=== PATIENT | female | born 1945 | race Caucasian/White ===

== ENCOUNTER 2016-12-09 13:34 | Emergency (ER) | payer MEDICARE, OTHER ==
[~2016-12-09] VITALS: Ht 170.2 cm; Wt 79.5 kg
[~2016-12-09 13:34] MED LIST: DULO30C PO; GABA300C PO; ROPI2TAB27 PO; [UNRECOGNIZED DRUG - CODE] PO
[2016-12-09 13:41] VITALS: BP 124/77; PULSE 84; RESP 15; O2SAT 94
[2016-12-09 14:33] LABS: BASOPHILS % (AUTO) 0.6 % (0-3); EOSINOPHILS % (AUTO) 5.3 % (0-5); MONOCYTES % (AUTO) 5.9 % (4-12); Mean Corpuscular Hemoglobin 30.2 pg (27.0-35.0); Mean Corpuscular Volume 92.1 fL (81-100); NEUTROPHILS % (AUTO) 73.1 % (40-74); Platelet Count 267 bil/L (150-400)
--- NOTE | 2016-12-09 14:37 | DRSVH ---
PROCEDURE: X-RAY CHEST ONE VIEW, PORTABLE ([id number]) INDICATIONS: CHEST PAIN TECHNIQUE: One view of the chest was acquired. COMPARISON: None. FINDINGS: Surgical changes and devices: None. Lungs and pleura: No pleural effusions or pneumothorax. Lungs are clear. Mediastinum: Mediastinal contours appear normal. Heart size is normal. Bones and chest wall: No suspicious bony lesions. Overlying soft tissues appear unremarkable. IMPRESSION: No acute pulmonary process. Dictated by: Ana Maria Riojas M.D. on 12/09/2016 at 14:36 Approved by: Ana Maria Riojas M.D. on 12/09/2016 at 14:36
[2016-12-09] MEDS ORDERED: Alum-Mag Hydrox-Simeth 30 mL Suspension PO ONE (14:40)
--- NOTE | 2016-12-09 14:56 | ED.REPORT ---
HPI-Chest Pain 40 and Over Date of Service Dec 09, 2016 ED Provider: Doc,Ed MD Ms. Clare Vale is a pleasant 71-year-old female with past medical history significant for depression, restless leg syndrome, and hip replacement surgery and significant smoking history 50+ years anywhere from a third to a pack a day , presents to [facility] emergency Department with 4 hour history of central chest pressure or 5 out of 10 that intermittently radiates to the jaw bilaterally and a waxing and waning pattern for which she took a chewable aspirin for an 3 hours into the spell visited the urgent care at which point her pressure subsided. She noted that it would resolve and resume on its own and not correlated to rest or activity, however she did state that did seem to have gotten worse at one point when bending over. She denies all other symptoms like headache, dizziness, syncope, nausea, vomiting, fever, chills, change in vision, diaphoresis, cough, shortness of breath, abdominal pain, new diarrhea or constipation. She reports the first time this has happened and she said no other cardiac events. Of note she received a sleep study 3 weeks ago which noted mild apnea and oxygen sats did drop to 85% at night. The medications she is currently on are for depression and restless leg syndrome. Nursing Notes Stated Complaint: CHEST PAIN Chief Complaint: Chest Pain Nursing Notes Reviewed: Yes Allergies: Coded Allergies: No Known Allergies (Unverified , 12/09/16) Scheduled Duloxetine-Expunged Drug, Do Not Renew! (Cymbalta-Expunged Drug, Do Not Renew!) 30 Mg Capsule.dr 30 MG PO HS Duloxetine-Expunged Drug, Do Not Renew! (Cymbalta-Expunged Drug, Do Not Renew!) 30 Mg Capsule.dr 60 MG PO AM Gabapentin-Expunged Drug, Do Not Renew! (Neurontin-Expunged Drug, Do Not Renew! ) 300 Mg Capsule 300-600 MG PO AM Gabapentin-Expunged Drug, Do Not Renew! (Neurontin-Expunged Drug, Do Not Renew! ) 300 Mg Capsule 900 MG PO HS Ropinirole Hcl-Expunged Drug, Do Not Renew! (Ropinirole Hcl-Expunged Drug, Do Not Renew!) 2 Mg Tab.er.24h 2-4 MG PO 2-3XD Trazodone-Expunged Drug, Do Not Renew! (Trazodone-Expunged Drug, Do Not Renew!) 100 Mg Tab 200 MG PO HS General Time Seen by MD: 14:11 Chief Complaint Chest pain Hx Obtained From: Patient Sudden in Onset?: Yes Review of Systems Review of Systems Note: A comprehensive review of systems was conducted with the patient and found to be negative except as above in the History of Present Illness. Physical Exam Physical Exam Notes: General: Very pleasant elderly lady sitting in bed in no acute distress well-developed, well-nourished, appropriately interactive HEENT: Normocephalic, atraumatic. External ears without defect. Pupils equal, round, and reactive to light and accommodation. Anicteric sclerae, moist conjunctivae, and no lid lag. Oropharynx free of erythema and cobble stoning with moist mucosa. Neck: Supple with full range of motion. No jugular venous distension. No bruits. No lymphadenopathy or thyromegaly. Cardiovascular: Regular rate and rhythm with no murmurs, rubs, or gallops appreciated Pulmonary: Clear to auscultation bilaterally with mild crackles, no wheezes, or rhonchi. Normal respiratory effort with no use of accessory muscles. Abdomen: Bowel tones present. Soft, nontender, nondistended. No hepatosplenomegaly or masses appreciated. Extremities: No clubbing, cyanosis, edema, or lymphadenopathy appreciated. Skin: Normal temperature, turgor, and texture; no rash, ulcers, or subcutaneous nodules appreciated. Neurological: Cranial nerves grossly intact. Normal muscle strength, tone, and bulk. Reflexes, coordination, and sensory function within normal limits. No known gait impairment. Psychiatric: Normal mood and affect. Alert and oriented to person, place, and time. General: No acute distress, well-developed, well-nourished, appropriately interactive HEENT: Normocephalic, atraumatic. External ears without defect. Pupils equal, round, and reactive to light and accommodation. Anicteric sclerae, moist conjunctivae, and no lid lag. Oropharynx free of erythema and cobble stoning with moist mucosa. Neck: Supple with full range of motion. No jugular venous distension. No bruits. No lymphadenopathy or thyromegaly. Cardiovascular: Regular rate and rhythm with no murmurs, rubs, or gallops appreciated Pulmonary: Clear to auscultation bilaterally with no crackles, wheezes, or rhonchi. Normal respiratory effort with no use of accessory muscles. Abdomen: Bowel tones present. Soft, nontender, nondistended. No hepatosplenomegaly or masses appreciated. Extremities: No clubbing, cyanosis, edema, or lymphadenopathy appreciated. Skin: Normal temperature, turgor, and texture; no rash, ulcers, or subcutaneous nodules appreciated. Neurological: Cranial nerves grossly intact. Normal muscle strength, tone, and bulk. Reflexes, coordination, and sensory function within normal limits. No known gait impairment. Psychiatric: Normal mood and affect. Alert and oriented to person, place, and time. Initial Vital Signs Vital Signs (First) Date Time Temp Pulse Resp B/P Pulse Ox O2 Delivery O2 Flow Rate FiO2 12/09/16 13:41 37.4 84 15 124/77 94 Room Air Interpretation & Diagnostics Lab Results Interpretation Result Diagram: 12/09/16 1415 12/09/16 1415 Test 12/09/16 14:15 12/09/16 15:49 White Blood Count 10.2th/mm3 (3.8-10.1) Red Blood Count 4.83mil/mm3 (3.90-5.20) Hemoglobin 14.6g/dL (12.0-15.6) Hematocrit 44.5% (35.0-46.0) Mean Corpuscular Volume 92.1fL (81-100) Mean Corpuscular Hemoglobin 30.2pg (27.0-35.0) Mean Corpuscular Hemoglobin Concent 32.8% (32.0-37.0) Red Cell Distribution Width 13.8% (12.3-15.4) Platelet Count 267bil/L (150-400) Neutrophils (%) (Auto) 73.1% (40-74) Lymphocytes (%) (Auto) 14.5% (14-46) Monocytes (%) (Auto) 5.9% (4-12) Eosinophils (%) (Auto) 5.3% (0-5) Basophils (%) (Auto) 0.6% (0-3) D-Dimer < 0.5mg/L (<0.50) Sodium Level 142mEq/L (134-144) Potassium Level 4.5mEq/L (3.5-5.2) Chloride Level 105mEq/L (97-108) Carbon Dioxide Level 23mmol/L (18-29) Blood Urea Nitrogen 16mg/dL (8-27) Creatinine 1.06mg/dL (0.57-1.00) Estimat Glomerular Filtration Rate 74mL/min (>59) Glucose Level 78mg/dL (60-99) Calcium Level 9.5mg/dL (8.5-10.1) Magnesium Level 2.5mg/dL (1.6-2.6) Total Bilirubin 0.2mg/dL (0.0-1.2) Aspartate Amino Transf (AST/SGOT) 18U/L (0-50) Alanine Aminotransferase (ALT/SGPT) 19U/L (0-32) Alkaline Phosphatase 76U/L (25-165) Troponin T < 0.010ug/L (0.0-0.011) Total Protein 7.3g/dL (6.4-8.4) Albumin 4.5g/dL (3.4-5.0) Hold Urine Received (Received) Re-Eval/Medical Decision Med Decision/Clinical Course Ms. Clare Mckeon has a significant smoking history of 50+ years anywhere from a third to a pack per day and is currently not on vascular health medications. Her Chest pain is suspicious for cardiac origins and will be worked up as such with EKG, troponins, CMP CBC, chest x-ray, d-dimer. Differential includes ACS, PE, costochondritis, anxiety, pneumothorax, GERD, Naresh/myocarditis, neoplasm. Discharge & Departure Shift Change Sign-Out Patient Care Transferred: Yes Discussed Complaint(s): Yes Laboratory Evaluation: Done, results pending Imaging Studies: Done, reviewed by mi Transfer of care at 1554 to [facility]. Primary Impression: Chest pain Referrals: Elisha Moeller MD (PCP) Care Transferred to: [facility] Care Transferred at: 16:23 copies to: Elisha Moeller MD, COREY P DO Dec 09, 2016 14:11 ALISON LEO Dec 09, 2016 15:54 Ryder Navas DO Dec 09, 2016 16:23
[2016-12-09 15:06] LABS: Magnesium 2.5 mg/dL (1.6-2.6)
[2016-12-09 15:07] LABS: TROPONIN T < 0.010 ug/L (0.0-0.011)
[2016-12-09 17:50] VITALS: BP 129/71; PULSE 81; RESP 12; O2SAT 100
== END 2016-12-09 17:57 | disposition home or self-care (01) ==
LOC: SED 13:34
DX: R07.9 Chest pain, unspecified (principal)
CPT/HCPCS: 36415; 71010; 80053; 83735; 84484; 85025; 85379; 93005; 99285; G0463

== ENCOUNTER 2016-12-12 08:15 | Emergency (ER) | payer MEDICARE, OTHER ==
[~2016-12-12] VITALS: Ht 170.2 cm; Wt 79.1 kg
[2016-12-12 08:26] VITALS: BP 113/79; PULSE 79; RESP 16; O2SAT 98
--- NOTE | 2016-12-12 08:32 | ED.REPORT ---
HPI-Stroke / CVA Dec 12, 2016 ED Provider: Dr. Choi Pt is a 71 year old female presenting to the ED complaining of change in level of coordination yesterday at 1200. The pt states that yesterday at the [employer] she began stumbling, walking with strange posture, leaning back, feeling weak, walking like she was intoxicated. Denies change in speech, facial droop, nausea, dizziness. Multiple people commented on her weird behavior. The pt reports that the symptoms lasted for a few hours, then resolved. She states that it felt like it was uncoordination of her lower half. She denies previous symptoms or previous stroke. The pt was seen last week for CP which is still resolved. Nursing Notes Stated Complaint: LOSS OF BALANCE Chief Complaint: General Complaint Nursing Notes Reviewed: Yes ([facility], meds not reconciled) Allergies: Coded Allergies: No Known Allergies (Unverified , 12/09/16) Scheduled Duloxetine-Expunged Drug, Do Not Renew! (Cymbalta-Expunged Drug, Do Not Renew!) 30 Mg Capsule.dr 30 MG PO HS (Reported) Duloxetine-Expunged Drug, Do Not Renew! (Cymbalta-Expunged Drug, Do Not Renew!) 30 Mg Capsule.dr 60 MG PO AM (Reported) Gabapentin-Expunged Drug, Do Not Renew! (Neurontin-Expunged Drug, Do Not Renew! ) 300 Mg Capsule 300-600 MG PO AM (Reported) Gabapentin-Expunged Drug, Do Not Renew! (Neurontin-Expunged Drug, Do Not Renew! ) 300 Mg Capsule 900 MG PO HS (Reported) Ropinirole Hcl-Expunged Drug, Do Not Renew! (Ropinirole Hcl-Expunged Drug, Do Not Renew!) 2 Mg Tab.er.24h 2-4 MG PO 2-3XD (Reported) Trazodone-Expunged Drug, Do Not Renew! (Trazodone-Expunged Drug, Do Not Renew!) 100 Mg Tab 200 MG PO HS (Reported) General Time Seen by Provider: 09:01 Chief Complaint Lost coordination Hx Obtained From: Patient, Spouse Arrived By: Walk-in Time last known well Yesterday 1200 Sudden in Onset?: Yes Symptom Duration: 1 - 4 hours Progression Since Onset: Resolved Severity: Current: No pain currently Severity: Maximum: No pain Associated with: Reports: Balance problem, Gait problem, Denies: Nausea, Speech problem, Vomiting Recent Healthcare: No recent hospitalization, Recent doctor visit Similar Sx Previous: No Risk Factors NIH Stroke Scale Level of Consciousness: Alert and responsive (0) Ask Month & Age: Both questions right (0) Open/Close Eyes/Hand Make Up Artist: Performs both tasks (0) Horizontal EO Movements: None (0) Visual Coker: No visual loss (0) Facial Palsy: Normal symmetry (0) Right Arm Motor Drift (10s): No drift 10 sec (0) Left Arm Motor Drift (10s): No drift 10 sec (0) Right Leg Motor Drift (5s): No drift 5 sec (0) Left Leg Motor Drift (5s): No drift 5 sec (0) Limb Ataxia FNF/Heel-Montiel: No ataxia (0) Sensation (Arms/Legs/Face): No sensory loss (0) Language Aphasia: No aphasia, normal (0) Dysarthria: No dysarthria, normal (0) Extinction/Inattention: No exctinct/inattent (0) NIHSS Score: 0 Time NIHSS Performed: 09:07 Past Medical History Past Medical History Marginally high cholesterol Restless leg syndrome Reports: Depression Past Surgical History Hip surgery Family History Denies family history of Stroke Smoking History Current Every Day Smoker Review of Systems GI: Denies: Diarrhea, Nausea, Vomiting Neurologic: Reports: Abnormal movement, Weakness, Denies: Dizziness, Slurred speech Complete sys rev & neg: except as marked. Physical Exam Initial Vital Signs Vital Signs (First) Date Time Temp Pulse Resp B/P Pulse Ox O2 Delivery O2 Flow Rate FiO2 12/12/16 08:26 36.4 79 16 113/79 98 12/12/16 13:11 Room Air Initial VS: Reviewed, Vital signs normal ENT: Mucous membranes moist, Conjunctiva normal, No scleral icterus Abdomen / GI: Soft, Non-tender, No guarding, No rebound, No distention Skin: Warm, Dry, No cyanosis Psychiatric: Mood/affect normal, Behavior normal, Normal thought content General/Constitutional: Awake, Alert, No acute distress, Well appearing Head / Eyes: Normocephalic, PERRL, EOMI Neck: Atraumatic, Supple Respiratory / Chest: Breath sounds NL, Breath sounds = bilat, No respiratory distress, No rales, No rhonchi, No wheezing Cardiovascular: Heart rate NL, Regular rhythm, Heart sounds NL, No murmurs, Peripheral circulation NL Neurologic: Oriented X3, Speech NL, No sensory deficits, CN II - XII intact Negative Romberg but she does have difficulties with heel to toe ambulation. Interpretation & Diagnostics Interpretation & Diagnostics: MRI NO CONTRAST: IMPRESSION: 1. No definite acute intracranial hemorrhage or ischemia. 2. Questionable very small area (2-3 mm) of ischemia within the left middle cerebellar peduncle versus more likely artifact. However, correlation with the patient's symptoms is recommended. 3. 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 4. Mild white matter changes within the bilateral frontal lobes are likely age related. 5. Mild ethmoid sinus disease and left mastoid effusion. Note: Findings were discussed with Dr. Choi at 1227 hours ([facility]) on 12/12/16. Dictated by: Sridhar Westfall M.D. on 12/12/2016 at 11:18 Lab Results Interpretation Result Diagram: 12/12/16 1053 12/12/16 1053 Test 12/12/16 08:13 12/12/16 10:53 Hold Urine Received (Received) White Blood Count 7.2th/mm3 (3.8-10.1) Red Blood Count 4.52mil/mm3 (3.90-5.20) Hemoglobin 13.6g/dL (12.0-15.6) Hematocrit 41.9% (35.0-46.0) Mean Corpuscular Volume 92.7fL (81-100) Mean Corpuscular Hemoglobin 30.1pg (27.0-35.0) Mean Corpuscular Hemoglobin Concent 32.5% (32.0-37.0) Red Cell Distribution Width 13.8% (12.3-15.4) Platelet Count 231bil/L (150-400) Neutrophils (%) (Auto) 64.3% (40-74) Lymphocytes (%) (Auto) 21.4% (14-46) Monocytes (%) (Auto) 6.9% (4-12) Eosinophils (%) (Auto) 6.2% (0-5) Basophils (%) (Auto) 0.8% (0-3) Sodium Level 144mEq/L (134-144) Potassium Level 4.3mEq/L (3.5-5.2) Chloride Level 107mEq/L (97-108) Carbon Dioxide Level 25mmol/L (18-29) Blood Urea Nitrogen 17mg/dL (8-27) Creatinine 1.03mg/dL (0.57-1.00) Estimat Glomerular Filtration Rate 76mL/min (>59) Glucose Level 84mg/dL (60-99) Calcium Level 9.3mg/dL (8.5-10.1) Total Bilirubin 0.3mg/dL (0.0-1.2) Aspartate Amino Transf (AST/SGOT) 16U/L (0-50) Alanine Aminotransferase (ALT/SGPT) 16U/L (0-32) Alkaline Phosphatase 75U/L (25-165) Total Protein 6.6g/dL (6.4-8.4) Albumin 4.0g/dL (3.4-5.0) Alcohol, Quantitative < 10mg/dL (0-10) Lab Results Interpretation: CBC normal CMP normal CT Head Interpretation IMPRESSION: 1. No acute intracranial findings. Dictated by: Kelsey Cruz M.D. on 12/12/2016 at 9:53 Interpretation / Wet Read by: Interpret - Radiologist NL CT Head Findings: No acute disease Re-Eval/Medical Decision Med Decision/Clinical Course This is a 71-year-old female presents having had an episode of ataxia during a January/ yesterday. She said several people noticed, and it was "as if she was drunk" but then resolved with time. She denies focal numbness weakness paresthesias headache. No recurrence of symptoms, but became concerned enough she might of had a stroke to come in. Here in the department she appears well. Her NIH stroke scale is 0. She does not meet criteria for TPA, nor did she have a definite diagnosis of stroke. She is able to ambulate, without gross deficit-but appears slightly unstable on heel to toe. She gets heel to montiel testing without difficulty, finger nose testing without difficulty, and has a negative Romberg. Contrast head CT was normal. My the brain did not reveal could cut acute stroke. There were signs of an old stroke, I discussed this recommended aspirin. There is also started trace area the radiologist thinks is a imaging artifact, and given the patient is now doing well on reexamination and bleeding normally, the indication that hospitalization for any additional testing. I think the patient can be discharged on low-dose aspirin, and she has PCP scheduled follow-up in the next 2 days. Liver, she was advised that if symptoms reoccurred, or she had similar type symptoms to come in immediately without delay. Source of Hx: Old records Re-Evaluation/Progress #1: Time of Eval: 10:28 Patient Status: Condition improved Re-Evaluation/Progress Note: Discussed negative CT and plan for MRI. Re-Evaluation/Progress #2: Time of Eval: 12:42 Patient Status: Condition improved Re-Evaluation/Progress Note: Discussed MRI results. Pt reports that she feels tired. Discussed plan for discharge. Pt understands and agrees with plan. Consultation : Referral / Consult Name: Kelsey Cruz MD Call Returned at: 10:09 Note: Radiology agrees with plan for non contrast MRI. Differential Diagnosis: Negative: Atrial fibrillation, Atypical migraine, Cerebellar hemorrhage, Cerebrovascular accident, Closed head injury, Complex migraine, Electrolyte disorder, Hyperglycemia, Intoxication, alcohol, Subarachnoid hemorrhage, Subdural hemorrhage Counseled Regarding: Diagnosis, Lab results, Need for follow-up, When/why to return to ED Patient Discharge & Departure Impression: Primary Impression: Transient neurological symptoms Disposition: Home Discharge Condition All VS Reviewed: Yes Condition: Improved Additional Instructions: 1. Your CT scan and MRI do not show any signs of stroke today, although the MRI did show signs of a previous small stroke. 2. Take 1 low dose (baby - 81mg) Aspirin daily to prevent a stroke in the future. 3. Keep your appointment with Dr. Camilo. 4. If you have these or worse symptoms again, return to the ER right away. Scribe Attestation Portions of this note were transcribed by Mary Mckeon. I, Dr. Choi personally performed the history, physical exam and medical decision-making; I reviewed and confirmed the accuracy of the information in the transcribed note. Signed by: Ronna Adams, 12/12/2016 and 1254. Dashawn Choi MD Dec 12, 2016 08:32 MARY MCKEON Dec 12, 2016 09:18
--- NOTE | 2016-12-12 09:56 | DRSVH ---
PROCEDURE: CT BRAIN WITHOUT CONTRAST ([id number]) INDICATIONS: ataxia TECHNIQUE: Noncontrast 4.5 mm thick angled axial sections acquired from the foramen magnum to the vertex, with c oronal reformats. COMPARISON: None. FINDINGS: Image quality: Excellent. CSF spaces: Basal cisterns are patent. No extra-axial fluid collections. The ventricles are symmet beka in size and shape. Brain: No intracranial bleeds or masses. There is trace cerebral volume loss for age, with resultan t ventricular and sulcal prominence. There are trace periventricular and deep white matter chronic s mall vessel ischemic changes. There is intracranial internal carotid artery atherosclerosis. Skull and face: Calvarium and visualized facial bones appear intact, without suspicious lesions. Sinuses: Visualized sinuses and mastoids are clear. IMPRESSION: 1. No acute intracranial findings. Dictated by: Kelsey Cruz M.D. on 12/12/2016 at 9:53 Approved by: Kelsey Cruz M.D. on 12/12/2016 at 9:55
[2016-12-12 11:14] LABS: BASOPHILS % (AUTO) 0.8 % (0-3); EOSINOPHILS % (AUTO) 6.2 % (0-5); MONOCYTES % (AUTO) 6.9 % (4-12); Mean Corpuscular Hemoglobin 30.1 pg (27.0-35.0); Mean Corpuscular Volume 92.7 fL (81-100); NEUTROPHILS % (AUTO) 64.3 % (40-74); Platelet Count 231 bil/L (150-400)
--- NOTE | 2016-12-12 12:30 | DRSVH ---
PROCEDURE: MRI BRAIN WITHOUT CONTRAST ([id number]) INDICATIONS: Ataxia TECHNIQUE: Noncontrast axial T1 spin echo, axial T2 fast spin echo, sagittal and axial FLAIR, coronal T2 fast sp in echo, axial gradient echo, axial diffusion and ADC through the brain. COMPARISON: [facility], CT, CT BRAIN WO CON, 12/12/2016, 9:29. FINDINGS: Image quality: Diagnostic. Brain: There is no acute intra-axial or extra-axial hemorrhage. No extra-axial fluid collection is i dentified. There is no midline shift or mass effect. The orbits are grossly unremarkable. No focal parenchymal masses are identified. There is no parenchymal edema. Subtle areas of increase d flair signal are identified within the deep white matter of the bilateral frontal lobes. No convin cing restricted diffusion is present. A 3 mm focus of diffusion bright signal involving the left mid dle cerebellar peduncle is noted (image 52, series 2) with corresponding decreased signal on the ADC map. No definite abnormal signal on the flair images is identified within this region. There may be subtle increased signal on the T2 images at this location. Old right cerebellar infarct is noted. The The midline intracranial structures are within normal limits. The major expected intracranial fl ow voids are visualized and unremarkable. The ventricles and cortical sulci are age-appropriate. Bones: The imaged osseous structures are grossly intact. No suspicious osseous lesions are identifie d. Mild mucosal thickening of the ethmoid air cells are present. There is a left mastoid effusion. Otherwise, the paranasal sinuses and right mastoid air cells are clear. Extracranial soft tissues: The imaged overlying soft tissues of the face and head are grossly unremar kable. IMPRESSION: 1. No definite acute intracranial hemorrhage or ischemia. 2. Questionable very small area (2-3 mm) of ischemia within the left middle cerebellar peduncle vers us more likely artifact. However, correlation with the patient's symptoms is recommended. 3. 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 4. Mild white matter changes within the bilateral frontal lobes are likely age related. 5. Mild ethmoid sinus disease and left mastoid effusion. Note: Findings were discussed with Dr. Choi at 1227 hours (PST) on 12/12/16. Dictated by: Sridhar Westfall M.D. on 12/12/2016 at 11:18 Approved by: Sridhar Westfall M.D. on 12/12/2016 at 11:29
[2016-12-12 13:11] VITALS: BP 100/63; PULSE 79; RESP 16; O2SAT 97
== END 2016-12-12 13:12 | disposition home or self-care (01) ==
LOC: SED 08:15
DX: R27.0 Ataxia, unspecified (principal); F17.200 Nicotine dependence, unspecified, uncomplicated; Y93.01 Activity, walking, marching and hiking; Y92.89 Other specified places as the place of occurrence of the external cause; Y99.8 Other external cause status
CPT/HCPCS: 36415; 70450; 70551; 80053; 85025; 99284; G0480